=== PATIENT | male | born 1985 | race Caucasian/White ===

== ENCOUNTER 2019-05-29 17:57 | Emergency (ER) | payer BC ==
[~2019-05-29] VITALS: Ht 182.9 cm; Wt 95.5 kg
[~2019-05-29 17:57] MED LIST: LORTAB 5/500 501 TAB PO; PHENERGAN 25 TA25 MG PO; PRILOSEC10 MG PO
[2019-05-29 18:38] LABS: BASO # 0.1 (0.0-0.2); BASO % 0.7 % (0.0-2.0); EOS # 0.5 (0.0-0.7); EOS % 4.9 % (0-4.0); GRAN # 3.5 (1.4-6.5); GRAN % 38.5 % (42.2-75.2); HEMATOCRIT 45.4 % (42.0-52.0); LYMPH % 43.7 % (20.0-51.0); MEAN CELL VOLUME 87 fl (80.0-100.0); MEAN CORPUSCULAR HEMOGLOBIN 31 pg (27.0-31.0); MEAN CORPUSCULAR HGB CONC 35 g/dl (33.0-37.0); MEAN PLATELET VOLUME 12.2 fl (7.4-10.4); MONO # 1.1 (0.1-0.6); PLATELET COUNT 170 K/mm3 (130-400); RED BLOOD COUNT 5.21 M/mm3 (4.20-5.60); REDCELL DISTRIBUTION WIDTH-CV 11.8 % (11.5-14.5)
[2019-05-29 18:43] LABS: ALANINE AMINOTRANSFERASE 12 U/L (21-72); ALBUMIN 4.7 gm/dL (3.5-5.0); ALKALINE PHOSPHATASE 62 U/L (50-136); ANION GAP 13 mmol/L (7-16); AST,SGOT 30 U/L (15-37); BILIRUBIN,TOTAL 0.8 mg/dL (0.0-1.0); BLOOD UREA NITROGEN 16 mg/dL (9-20); CALCIUM 9.6 mg/dL (8.4-10.2); CARBON DIOXIDE 23 mmol/L (22-30); CHLORIDE 103 mmol/L (98-107); CREATINE KINASE 93 U/L (55-170); CREATININE, serum 1.14 (0.66-1.25); GLUCOSE 114 mg/dL (74-106); POTASSIUM 4.1 mmol/L (3.4-5.0); SODIUM 138 mmol/L (137-145); TOTAL PROTEIN 7.4 gm/dL (6.4-8.2)
[2019-05-29 18:50] LABS: ALCOHOL(ethanol),MEDICAL < 10 mg/dL
[2019-05-29 19:40] VITALS: BP 130/65; PULSE 75
== END 2019-05-29 19:45 | disposition home or self-care (01) ==
LOC: COL.ER 17:57
PROVIDERS: Emergency Medicine
DX: E86.0 Dehydration (principal); R25.2 Cramp and spasm
CPT/HCPCS: J7030